=== PATIENT | male | born 1945 | race Caucasian/White ===

== ENCOUNTER 2017-09-08 21:19 | Emergency (ER) | payer OTHER, MEDICARE ==
--- NOTE | 2017-09-08 22:04 | EDPHY ---
General Time Seen by Provider: 09/08/17 22:01 Narrative: CHIEF COMPLAINT: Laceration HISTORY OF PRESENT ILLNESS: Patient complains of laceration to the left index finger. This happened within the past hour. This is from a clean box knife. Moderate bleeding that stopped with pressure. No difficulty bending or straightening the finger. No numbness , tingling or weakness. No injury elsewhere. He is right-hand dominant. Tetanus is up-to-date less than 5 years ago. Minimally painful at rest. Moderate with palpation movement. He says that he clean this with peroxide prior to arrival. No other associated complaints or modifying factors. TIME OF INJURY: Less than 2 hr prior to arrival TETANUS STATUS: Up-to-date less than 5 years MEDICAL/SURGICAL/SOCIAL HISTORY: Uncomplicated REVIEW OF SYSTEMS: Ten systems reviewed and are negative unless otherwise noted in the HPI EXAMINATION General Appearance: Alert, no distress Head: normocephalic, atraumatic Cardiovascular: Symmetric radial pulses 2+. Brisk cap refill in the left index finger Neurological: A&O, 2 point sensory symmetric, interossei strength symmetric. Skin: Warm and dry, no rash per 1.5 cm laceration of the left index finger over the middle phalanx, radial side. No tendon injury. No foreign body. Extremities: Mild tenderness over the area of laceration of the left index finger. Range of motion is intact with full flexion including superficialis and profundus. MDM: 10:00 p.m. Acute laceration to the left index finger over the middle phalanx, radial side. No tendon injury. No foreign body. Neurovascular intact distal to the injury. I have administered a digital block. His tetanus is up-to-date. I do not feel he warrants an x-ray. Proceed with irrigation closure. 10:40 p.m. Simple laceration of the left index finger. No tendon injury. No foreign body. Excellent he approximation of the wound borders with good hemostasis. He will be placed in a Xeroform and tube gauze dressing with Alumafoam splint. We discuss daily wound care. We discussed ED precautions. We discussed suture removal here in 7-10 days. He is comfortable this plan. Discharged home stable condition. PROCEDURE: Laceration repair Consent: Verbal Location: Left index finger, middle phalanx, radial side Length of repair: 1.5 cm Complexity: Simple Layer involvement: Single Anesthesia: Digital Irrigation: Extensive Debridement: None Procedure description: Following good anesthesia, the wound was copiously irrigated. Wound bed was explored with a sterile glove, and there is no foreign body noted. Wound borders were approximated well with good hemostasis. Tolerated well without complication. Suture/Staple material: 5-0 Ethilon, 4 simple ruptured sutures Wound care: Routine as discussed Suture/Staple removal: 7-10 Days PROCEDURE: Digital Block Indication: Finger laceration Consent: Verbal Location: Left index Anesthesia: Lidocaine 1% plain, 0.25% Marcaine plain, 5mL Description: Base of the finger was prepped. The above was infused without difficulty. Tolerated well. Good anesthesia. Complications: None SUPERVISION: This patient was independently evaluated without direct involvement of or examination by the attending physician. ED Precautions: Worsening pain. Erythema, edema, cyanosis, pallor, paresthesia or anesthesia. - History Smoking Status: Never smoked - Objective Vital Signs: Initial Vital Signs Temperature (C) 98.2 F 09/08/17 21:28 Heart Rate 74 09/08/17 21:28 Respiratory Rate 16 09/08/17 21:28 Blood Pressure 143/97 H 09/08/17 21:28 O2 Sat (%) 96 09/08/17 21:28 O2 Delivery Mode Room Air Allergies/Adverse Reactions: [place] And Derivatives Allergy (Verified 09/08/17 21:31) Home Medications: Medication Instructions Recorded Aspirin EC 81 mg (*) 09/08/17 Departure - Departure Disposition: Home, Routine, Self-Care Clinical Impression: Laceration of left index finger without damage to nail Qualifiers: Encounter type: initial encounter Foreign body presence: without foreign body Qualified Code(s): S61.211A - Laceration without foreign body of left index finger without damage to nail, initial encounter Condition: Good Instructions: Care For Your Stitches (DC), Laceration (ED) Additional Instructions: 1. Daily wound care with thin layer of bacitracin 2. Suture care as provided 3. Ibuprofen as needed for pain 4. Return here in 7-10 days for suture removal Referrals: PEBBLES MAHAJAN [Primary Care Provider] - As per Instructions
[2017-09-08 23:15] VITALS: BP 124/82
== END 2017-09-08 23:12 | disposition home or self-care (01) ==
PROC: 0HQGXZZ Repair Left Hand Skin, External Approach (ICD-10-PCS; principal; 2017-09-08)
DX: S61.211A Laceration without foreign body of left index finger without damage to nail, initial encounter (principal); Z79.82 Long term (current) use of aspirin; W26.0XXA Contact with knife, initial encounter
CPT/HCPCS: 12001; 99282; L3925